=== PATIENT | female | born 1970 | race Caucasian/White ===

== ENCOUNTER 2018-08-13 13:05 | Outpatient (REF) | payer OTHER, SELFPAY ==
--- NOTE | 2018-08-13 14:00 | PAPFT_PTH ---
PATIENT: Vivien Quijano LOC: [facility] U#:[id number] AGE/SX: 47/F ROOM: RE08/13/[address]: SOFIE Chairez : 1970 BED: DIS: 08/13/2018 SPEC #: [id number] RECD: 08/14/18 13:20 STATUS: RAZ DUNN #: [id number] SHRUTHI: 08/13/18 14:[address]: Erlinda Burns [facility] Cytology RECD BY: Madisyn Cisneros Tissues: 1 - CX/ENDOCX FOR PAP SMEARS Procedures: PAP THIN PREP/UVM Screening HPV DNA PROBE Comments: [id number]
== END 2018-08-13 13:25 ==
LOC: LBN 13:05
PROVIDERS: PCP Nurse Practitioner Family; Visit Provider Nurse Practitioner Family
DX: Z12.4 Encounter for screening for malignant neoplasm of cervix (principal); Z11.51 Encounter for screening for human papillomavirus (HPV)
CPT/HCPCS: 88142; 87624

== ENCOUNTER 2018-08-21 00:41 | Outpatient (CLI) | payer OTHER, SELFPAY ==
--- NOTE | 2018-08-21 08:00 | DI.MAMMO_ITS ---
SYMPTOM/DIAGNOSIS: SCREENING, Z12.31 MAMMOGRAMS: Mammograms were interpreted according to the usual protocol including computer analysis with CAD system, tomosynthesis and C view imaging. The breast tissue is heterogeneously radiodense which lowers the sensitivity of the study. There is no dominant mass. There are no suspicious calcifications and there has been no significant interval change when compared with prior examinations. SUMMARY: No evidence of malignancy, category 1. Yearly screening mammography is recommended. Breast density, category C. SA ASSESSMENT OF FINDINGS: Negative. Category 1. Patient will receive a letter notifying them of these results. Bi-RADS category C. The breasts are heterogeneously dense, which may obscure small masses.
[2018-08-21 09:41] LABS: Hemoglobin A1C 6.1 % (4.5-6.2)
[2018-08-21 09:55] LABS: ALT 39 U/L (12-78); AST 17 U/L (15-37); Albumin 3.5 g/dL (3.4-5.0); Alkaline Phosphatase 85 U/L (46-116); Anion Gap 6.6 mmol/L (3-11); BUN 13 mg/dL (7-18); Bilirubin, Total 0.5 mg/dL (0.2-1.0); CO2 30.4 mmol/L (21.0-32.0); Calcium 9.1 mg/dL (8.5-10.1); Chloride 102 mmol/L (98-107); Cholesterol 227 mg/dL (50-200); Glucose 116 mg/dL (70-100); HDL Cholesterol 48 mg/dL (40-60); LDL CHOLESTEROL 159 mg/dL (<100); Potassium 3.7 mmol/L (3.5-5.1); Sodium 139 mmol/L (136-145); TSH 3.12 uIU/mL (0.358-3.74); Total Protein 6.8 g/dL (6.4-8.2); Triglyceride 115 mg/dL (30-150)
[2018-08-21 10:14] LABS: FREE T4 0.93 ng/dL (0.76-1.46)
== END 2018-08-21 01:01 ==
PROVIDERS: PCP Nurse Practitioner Family; Visit Provider Nurse Practitioner Family
DX: Z12.31 Encounter for screening mammogram for malignant neoplasm of breast (principal); E78.5 Hyperlipidemia, unspecified; R73.03 Prediabetes
CPT/HCPCS: 36415; 77063; 77067; 80053; 80061; 83721; 83036; 84439; 84443

== ENCOUNTER 2019-10-13 01:06 | Outpatient (CLI) | payer OTHER, SELFPAY ==
--- NOTE | 2019-10-13 08:21 | DI.MAMMO_ITS ---
EXAM: MAMMO SCREENING CLINICAL HISTORY: screening,Z12.39 TECHNIQUE: Mammograms were interpreted according to the usual protocol including computer analysis w ith CAD system, tomosynthesis and C-view imaging. COMPARISON: 2013 through 2018 FINDINGS: The breasts are composed of scattered fibroglandular densities, Breast Density category B. No suspicious masses or suspicious microcalcifications are seen. No skin thickening or abnormal axillary lymph nodes are seen. There has been no significant change from prior exams. IMPRESSION: BI-RADS category 1, yearly screening mammography is recommended. Breast density category B, scattered fibroglandular densities.
== END 2019-10-13 01:26 ==
PROVIDERS: PCP Nurse Practitioner Family; Visit Provider Nurse Practitioner Family
DX: Z12.31 Encounter for screening mammogram for malignant neoplasm of breast (principal)
CPT/HCPCS: 77063; 77067

== ENCOUNTER 2020-04-25 02:24 | Outpatient (CLI) | payer OTHER, SELFPAY ==
[2020-04-26 23:25] LABS: COVID-19 RT-PCR Result NEGATIVE (Negative)
== END 2020-04-25 02:44 ==
PROVIDERS: PCP Nurse Practitioner Family; Visit Provider Nurse Practitioner Family
DX: Z20.828 Contact with and (suspected) exposure to other viral communicable diseases (principal); Z11.59 Encounter for screening for other viral diseases
CPT/HCPCS: U0003

== ENCOUNTER 2020-05-23 10:32 | Emergency (ER) | payer OTHER, SELFPAY ==
[2020-05-23] VITALS (47 sets, daily range): BP systolic 124–161; BP diastolic 71–92; PULSE 69–104; RESP 13–27; TEMP 36.7–37.4; O2SAT 97–100
--- NOTE | 2020-05-23 10:30 | RT.EKG_ITS ---
APPROVED REPORT Exam: Resting ECG Patient Location: E HR:93 bpm ECG Measurements Heart Rate 93 AXIS [place] 151 P 61 QRSd 81 QRS 25 QT 338 T 16 QTc 420 Conclusion Sinus rhythm...normal P axis, V-rate 60- 99 Probable left atrial enlargement...P >50mS, <-0.10mV V1
--- NOTE | 2020-05-23 10:33 | ED.GENADUL_ITS ---
Discharge Plan Disposition Patient Disposition: HOME Condition: Stable Discharge Details Clinical Impression: Chronic shortness of breath, Right-sided chest wall pain, Pain in right shoulder Primary Care Provider: Erlinda Burns ED Provider: Kae Devine Home Meds and New Rx's Prescriptions: Continued levonorgestrel-ethinyl estrad 0.15-0.03 mg tablet 1 tab PO DAILY Qty: 84 RF: 4 Discharge Instructions Instructions: Dyspnea (ED), Shoulder Pain (ED), Chest Wall Pain (ED) Additional Instructions: Alternate ice and heat to the affected area(s) several times daily for 20 minutes at a time. Alternate tylenol and motrin as needed and directed for pain. Call your primary care doctor's office today or tomorrow to schedule follow-up appointment for reevaluation and for consideration for outpatient stress test if symptoms persist or worsen. Return immediately to the emergency department if you develop any worsening or new concerning symptoms. Discharge Data Discharge Date/Time-TO BE ENTERED AT DEPARTURE: 05/23/20 15:42 Discharge Physician: Kae Devine Medical Decision Making 1050 -- 49-year-old female with a history of obesity, anxiety, depression, hyperlipidemia and prediabetes presents with right-sided chest and shoulder pain after shoveling a few days ago and chronic intermittent shortness of breath with exertion for the past several months. Also complaining of an episode of tingling of her face and hands this morning at work. Patient states she felt anxious returning to work today after a week off. EKG on arrival notes a rate of 93, sinus with no acute ST-T wave ischemic findings. Patient appears mildly anxious. Her blood pressure and heart rate are moderately elevated. Her oxygen saturation is 100% on room air. Differential diagnosis includes anxiety, muscle strain, PE, ACS. History and presentation not consistent with dissection. As her pain is reproducible, suspect most likely musculoskeletal with an anxiety component due to the perioral and hand paresthesias. Considering her comorbidities and control, will obtain a cardiac work-up and CT chest and give fluids, Toradol and Ativan and reassess. Labs and imaging reviewed and unremarkable. CT chest noted: 1. Less than optimal study due to respiratory motion artifact + somewhat less than optimal injection. No evidence of obvious acute pulmonary emboli. No evidence of pulmonary infarction.No pleural effusions. 2. No evidence of right heart failure. No shift of the interventricular septum. 3. Hepatic steatosis is noted. Patient reassessed and she feels better. She appears more comfortable and relaxed. Her vitals are within normal limits. As her shortness of breath has been chronic and her chest pain is reproducible, history and presentation less likely consistent with PE or ACS. Considering patient's risk factors will also obtain a repeat EKG and troponin. Repeat EKG and troponin unremarkable. Patient reassessed and she feels comfortable going home. Advised to alternate ice and heat, Tylenol and Motrin for her chest wall and shoulder pain. She is advised to follow-up with her primary care doctor for further evaluation if symptoms persist for consideration of an outpatient stress test. Usual and customary return precautions given prior to discharge. Medical Records Medical records reviewed: Yes I reviewed the patient's medical records. Imaging Data Radiologic Study: Radiologist's impression: CT CHEST PE CTA CLINICAL HISTORY: sob, chest tightness, r/o PE. TECHNIQUE: Imaging Protocol: CT angiography of the chest was performed using pulmonary embolus protocol. Multi planar reconstructions were performed. CONTRAST MATERIAL: Intravenous: Omnipaque 350 Contrast volume: 100 cc COMPARISON: No exams were available for comparison FINDINGS: CHEST: Study is somewhat less than optimal due to respiratory motion artifact +slightly less than optimal injection PULMONARY ARTERIES: There are no obvious intraluminal filling defects to suggest acute pulmonary emboli. LUNGS: There are no infiltrates nor evidence of pulmonary infarction.. No nodules evident in either lung field. There are no pleural effusions. MEDIASTINUM: There is no hilar nor mediastinal adenopathy. Visualized thyroid unremarkable. CARDIAC: Heart size is normal. There is no pericardial effusion.Caliber of the thoracic aorta is within normal limits. There is no evidence of shift of the interventricular septum. PARTIALLY VISUALIZED UPPERMOST ABDOMEN: Hepatic steatosis incidentally noted. OSSEOUS: No significant osseous lesions.. IMPRESSION: 1. Less than optimal study due to respiratory motion artifact + somewhat less than optimal injection. No evidence of obvious acute pulmonary emboli. No evidence of pulmonary infarction.No pleural effusions. 2. No evidence of right heart failure. No shift of the interventricular septum. 3. Hepatic steatosis is noted. Lab Data Lab results reviewed: Yes I reviewed the patient's lab results. Labs: Laboratory Tests Range/Units 05/23/20 05/23/20 05/23/20 11:00 11:00 11:00 WBC (4.4-10.8) 10^3/uL 6.16 RBC (3.93-5.22) 10^6/uL 4.65 Hgb (11.2-15.7) g/dL 12.9 Hct (36.0-46.0) % 40.4 MCV (80-95) fL 86.9 MCH (27.0-33.0) pg 27.7 MCHC (32.0-36.0) % 31.9 L RDW (11.7-14.6) % 14.1 Plt Count (130-400) 10^3/uL MPV (8.0-11.0) fL 11.0 Immature Gran % 0.3 Neutrophils % 62.5 Lymphocytes % 31.2 Monocytes % 4.7 Eosinophils % 0.8 Basophils % 0.5 Nucleated RBC % % 0 Absolute Neutrophils (1.2-6.7) 10^3/uL 3.85 Absolute Lymphocytes (1.2-3.4) 10^3/uL 1.92 Absolute Monocytes (0.1-0.8) 10^3/uL 0.29 Absolute Eosinophils (0.0-0.7) 10^3/uL 0.05 Absolute Basophils (0.0-0.2) 10^3/uL 0.03 RBC Morphology Normal PT (9.3-11.0) sec 11.0 INR (0.9-1.1) 1.1 APTT (21.0-27.5) sec 19.5 L Sodium (136-145) mmol/L 135 L Potassium (3.5-5.1) mmol/L 4.3 Chloride (98-107) mmol/L 102 Carbon Dioxide (21.0-32.0) mmol/L 22.2 Anion Gap (3-11) mmol/L 10.8 BUN (7-18) mg/dL 12 Creatinine (0.55-1.02) mg/dL 1.04 H Estimated GFR/1.73 m2 (mL/min/1.73m2) 56.56 Glucose (74-106) mg/dL 171 H Calcium (8.5-10.1) mg/dL 9.2 Magnesium (1.8-2.4) mg/dL 2.0 Total Bilirubin (0.2-1.0) mg/dL 0.4 AST (15-37) U/L 71 H ALT (14-59) U/L 101 H Alkaline Phosphatase (46-116) U/L 80 Troponin I (<0.06) ng/mL < 0.05 Total Protein (6.4-8.2) g/dL 7.5 Albumin (3.4-5.0) g/dL 3.3 L Range/Units 05/23/20 14:00 WBC (4.4-10.8) 10^3/uL RBC (3.93-5.22) 10^6/uL Hgb (11.2-15.7) g/dL Hct (36.0-46.0) % MCV (80-95) fL MCH (27.0-33.0) pg MCHC (32.0-36.0) % RDW (11.7-14.6) % Plt Count (130-400) 10^3/uL MPV (8.0-11.0) fL Immature Gran % Neutrophils % Lymphocytes % Monocytes % Eosinophils % Basophils % Nucleated RBC % % Absolute Neutrophils (1.2-6.7) 10^3/uL Absolute Lymphocytes (1.2-3.4) 10^3/uL Absolute Monocytes (0.1-0.8) 10^3/uL Absolute Eosinophils (0.0-0.7) 10^3/uL Absolute Basophils (0.0-0.2) 10^3/uL RBC Morphology PT (9.3-11.0) sec INR (0.9-1.1) APTT (21.0-27.5) sec Sodium (136-145) mmol/L Potassium (3.5-5.1) mmol/L Chloride (98-107) mmol/L Carbon Dioxide (21.0-32.0) mmol/L Anion Gap (3-11) mmol/L BUN (7-18) mg/dL Creatinine (0.55-1.02) mg/dL Estimated GFR/1.73 m2 (mL/min/1.73m2) Glucose (74-106) mg/dL Calcium (8.5-10.1) mg/dL Magnesium (1.8-2.4) mg/dL Total Bilirubin (0.2-1.0) mg/dL AST (15-37) U/L ALT (14-59) U/L Alkaline Phosphatase (46-116) U/L Troponin I (<0.06) ng/mL < 0.05 Total Protein (6.4-8.2) g/dL Albumin (3.4-5.0) g/dL ECG Data Attestation: I personally reviewed and interpreted this ECG (s) as follows: Interpretation: #1 -- Rate of 93, sinus, no acute ST elevation or depression. [place] 151. QRS 81. QTc 420. #2 -- Rate of 75, sinus, no acute ST elevation or depression. [place] 146. QRS 90. QTc 427. HPI General Mode of arrival: ambulatory . Date/Time Provider Initiated Documentation: 05/23/20 10:32 . Limitations to Documentation: no limitations . Information obtained by: patient . HPI Narrative: Patient is a 49-year-old female with a history of obesity, anxiety, depression, hyperlipidemia, prediabetes presents with several months of intermittent shortness of breath with exertion and right-sided chest tightness and right shoulder pain for the past 3 days after shoveling at home. Patient states she has a week off for the holidays and returned to work today and was sitting in her office when I coworker told her that she looked pale. She states shortly after that she noted tingling in her face and both of her hands. She states she called her primary care doctor and they advised her to come here for further evaluation. Patient states that since the pandemic started in July she has been more sedentary and has been sitting at home and has approximately gained 15 pounds. She states over the last several months she has become more short of breath with exertion. She states 3 days ago she was shoveling snow at home and a few hours later developed right-sided chest and right shoulder pain. She states she mainly came in today when her coworker told her that she appeared pale with tingling in her face and hands. She does admit to a history of anxiety and states she felt anxious this morning after speaking with her coworker. She denies any fever, cough, nausea, vomiting, dizziness. Related Data Home Medications Medication Instructions Recorded Confirmed levonorgestrel 0.15 mg-ethinyl 1 tab PO DAILY #84 tab 08/17/19 05/23/20 estradiol 0.03 mg tablet Previous Rx's Medication Instructions Recorded levonorgestrel 0.15 mg-ethinyl 1 tab PO DAILY #84 tab 08/17/19 estradiol 0.03 mg tablet Allergies Allergy/AdvReac Type Severity Reaction Status Date / Time No Known Allergies Allergy Unverified 05/23/20 10:45 Review of Systems All systems reviewed & are unremarkable except as noted in HPI and below Constitutional Constitutional: Reports as per HPI, Denies chills and Denies fever(s) Eyes Eyes: Denies blurry vision ENT Ears, Nose, Mouth, and Throat: Denies dizziness, Denies sore throat and Denies throat swelling Cardiovascular Cardiovascular: Denies chest pain and Denies dyspnea Respiratory Respiratory: Denies cough and Denies dyspnea Gastrointestinal Gastrointestinal: Denies abdominal pain, Denies diarrhea and Denies vomiting Genitourinary Genitourinary: Denies hematuria and Denies dysuria Musculoskeletal Musculoskeletal: Denies back pain and Denies numbness Integumentary/Breasts Skin/Breast: Denies lesions and Denies rash Neurologic Neurologic: Denies dizziness, Denies localized weakness and Denies numbness Allergic/Immunologic Allergic/Immunologic: Denies throat swelling [facility] Medical History (Updated 05/23/20 @ 14:58 by Kae Devine DO) Depressive disorder Generalized anxiety disorder Hyperlipidemia Left breast mass (~2003) Negative biopsy--fibrocystic changes Obesity Prediabetes Surgical History History of section S/P LASIK surgery of both eyes S/P left breast biopsy (02/03/04) Showed fibrocystic changes, no malignancy Family History Mother Essential hypertension Anxiety Hyperlipidemia Type 2 diabetes mellitus Father Hyperlipidemia Sister Migraine Anxiety Sister No problems noted. Sister No problems noted. Sister No problems noted. Sister No problems noted. Son ADHD Son No problems noted. Maternal Grandfather Heart disease Maternal Grandmother Colon cancer Liver cancer Paternal Grandfather Type 2 diabetes mellitus Heart disease Stroke Paternal Grandmother Esophageal cancer Maternal Aunt Breast cancer In her early 30s Social History Smoking/Tobacco Use Status: Never Smoking risk assessment performed?: Yes Alcohol Intake: current Alcohol Intake frequency: a few times a month Alcohol type: beer and wine Drug use: Never Substance use type: does not use Caregiver/Support person: No Household members: children Housing: house Communication Needs: None Do you need help understanding health information?: Never Pets and animals: No Sexually active: No Do you think of yourself as: straight/heterosexual Current gender identity: female What is your relationship status?: How often do you talk on the phone with friends or family?: three or more times per week How often do you attend christianity or druze services?: decline to answer Do you belong to any clubs or organized social groups?: yes Panel score (0-1 are the most socially isolated patients): 2 What type of physical activity do you participate in: walking Duration: > 90 minutes/day Frequency: 3-4 times per week Margaret/Mandaeism: Mandaeism Special margaret needs: No Seatbelt use: always Helmet use: Yes Drive intox or ride w/intox motor coach bus driver: No Do you feel safe at home: Yes Do you feel safe in your relationship?: Yes History History 2 Para 2 Hx # Term Pregnancies Multiple births Hx # Pregnancies Ectopic pregnancies AB induced Hx Number of Living Children 2 AB spontaneous Exam Const General: cooperative, healthy appearing and anxious Orientation: alert, awake and oriented x3 HENMT Head: normal to inspection Face and sinus: normal facial exam Eyes General: appearance normal, both eyes and all related structures Pupils: PERRL EOM: EOM intact bilaterally Neck Neck: normal visual inspection and No submandibular swelling Lymphatic: no lymphadenopathy noted Chest Chest: normal inspection of the chest and no tenderness Resp Effort & Inspection: normal respiratory effort and able to speak in complete sentences Auscultation: clear to auscultation bilaterally Cardio Rate: regular rate Rhythm: regular rhythm GI Inspection: normal to inspection and obesity Palpation: soft, not firm, not rigid and nontender Auscultation: normal bowel sounds Back/Spine/Pelvis Thoracic/Lumbar Spine: thoracic and lumbar spine normal to inspection Pelvis: no pain with anterior-posterior compression Skin General skin exam: no rashes or lesions noted Neuro General: patient alert, patient awake and patient oriented x3 Cognition: normal cognition Speech: speech normal Motor: muscle tone normal throughout Sensory Exam: no sensory deficits noted Extrem General: normal to inspection, full ROM, capillary refill normal, no calf tenderness bilaterally and no edema Other: Some reproducible right upper chest and shoulder pain with range of motion of her right upper extremity. No tenderness palpation of her right shoulder. No deformities noted. No evidence of trauma. Psych Appearance: grossly normal Mental Status: mental status grossly normal Speech and Movement: speech and movement normal Affect: normal affect
--- NOTE | 2020-05-23 11:00 | DI.CT_ITS ---
EXAM: CT CHEST PE CTA CLINICAL HISTORY: sob, chest tightness, r/o PE. TECHNIQUE: Imaging Protocol: CT angiography of the chest was performed using pulmonary embolus chapo col. Multi planar reconstructions were performed. CONTRAST MATERIAL: Intravenous: Omnipaque 350 Contrast volume: 100 cc COMPARISON: No exams were available for comparison FINDINGS: CHEST: Study is somewhat less than optimal due to respiratory motion artifact +slightly less than opt imal injection PULMONARY ARTERIES: There are no obvious intraluminal filling defects to suggest acute pulmonary embo li. LUNGS: There are no infiltrates nor evidence of pulmonary infarction.. No nodules evident in either l chavez field. There are no pleural effusions. MEDIASTINUM: There is no hilar nor mediastinal adenopathy. Visualized thyroid unremarkable. CARDIAC: Heart size is normal. There is no pericardial effusion.Caliber of the thoracic aorta is wit hin normal limits. There is no evidence of shift of the interventricular septum. PARTIALLY VISUALIZED UPPERMOST ABDOMEN: Hepatic steatosis incidentally noted. OSSEOUS: No significant osseous lesions.. IMPRESSION: 1. Less than optimal study due to respiratory motion artifact + somewhat less than optimal injection . No evidence of obvious acute pulmonary emboli. No evidence of pulmonary infarction.No pleural eff usions. 2. No evidence of right heart failure. No shift of the interventricular septum. 3. Hepatic steatosis is noted. Report called to the ER. RADIATION DOSE DELIVERED: LINK-TO-SR Total DLP DATA REPOSITORY: All CT scans at this facility are submitted to the National Radiology Data Registry (NRDR) Dose Index Registry (DIR) with the [employer] (ACR). RADIATION OPTIMIZATION: All CT scans at this facility use at least one of these dose optimization te chniques: automated exposure control; mA and/or kV adjustment per patient size (includes targeted exa ms where dose is matched to clinical indication); or iterative reconstruction.
[2020-05-23] MEDS: Normal Saline Flush 10 ML SYR IVP (11:05)
[2020-05-23 11:12] LABS: Abs Immature Grans 0.02 10^3/uL (0.0-0.06); Absolute Basophil Count 0.03 10^3/uL (0.0-0.2); Absolute Eosinophil Count 0.05 10^3/uL (0.0-0.7); Absolute Lymphocyte Count 1.92 10^3/uL (1.2-3.4); Absolute Monocyte Count 0.29 10^3/uL (0.1-0.8); Absolute Neutrophil Count 3.85 10^3/uL (1.2-6.7); Basophils % 0.5; Eosinophils % 0.8; HCT 40.4 % (36.0-46.0); HGB 12.9 g/dL (11.2-15.7); Immature Grans % 0.3; Lymphocytes % 31.2; MCH 27.7 pg (27.0-33.0); MCHC 31.9 % (32.0-36.0); MCV 86.9 fL (80-95); Monocytes % 4.7; Neutrophils % 62.5; Nucleated RBC 0 %; RBC 4.65 10^6/uL (3.93-5.22); RDW 14.1 % (11.7-14.6); RDW-SD 44.7 fL; WBC 6.16 10^3/uL (4.4-10.8)
[2020-05-23 11:25] LABS: INR 1.1 (0.9-1.1); PTT Activated 19.5 sec (21.0-27.5)
[2020-05-23 11:26] LABS: Diff Comment Diff Reviewed; RBC Morphology Normal
[2020-05-23] MEDS: Normal Saline 1,000 ML 1000 ML IV (11:31)
[2020-05-23 11:32] LABS: ALT 101 U/L (14-59); AST 71 U/L (15-37); Albumin 3.3 g/dL (3.4-5.0); Alkaline Phosphatase 80 U/L (46-116); Anion Gap 10.8 mmol/L (3-11); BUN 12 mg/dL (7-18); Bilirubin, Total 0.4 mg/dL (0.2-1.0); CO2 22.2 mmol/L (21.0-32.0); CREATININE 1.04 mg/dL (0.55-1.02); Calcium 9.2 mg/dL (8.5-10.1); Chloride 102 mmol/L (98-107); Estimated GFR 56.56 (mL/min/1.73m2); Glucose 171 mg/dL (74-106); Potassium 4.3 mmol/L (3.5-5.1); Sodium 135 mmol/L (136-145); Total Protein 7.5 g/dL (6.4-8.2); Troponin I < 0.05 ng/mL (<0.06)
[2020-05-23] MEDS: LORazepam 2 MG/ML VIAL 0.5 MG IVP (11:33)
[2020-05-23] MEDS: Ketorolac 30 MG/ML VIAL IVP (11:35)
[2020-05-23] MEDS: Omnipaque 350 MG/ML 100 ML BTL IV (12:34)
--- NOTE | 2020-05-23 13:15 | RT.EKG_ITS ---
APPROVED REPORT Exam: Resting ECG Patient Location: E HR:75 bpm ECG Measurements Heart Rate 75 AXIS [place] 146 P 36 QRSd 90 QRS 24 QT 382 T 9 QTc 427 Conclusion Sinus rhythm...normal P axis, V-rate 60- 99 I have reviewed and interpreted ECG and agree with software generated interpretation.
[2020-05-23 14:32] LABS: Troponin I < 0.05 ng/mL (<0.06)
== END 2020-05-23 15:42 | disposition home or self-care (01) ==
PROVIDERS: Emergency Provider Physician Assistant; PCP Nurse Practitioner Family
DX: R07.81 Pleurodynia (principal); R06.02 Shortness of breath; M25.511 Pain in right shoulder; Y93.H1 Activity, digging, shoveling and raking
CPT/HCPCS: 36415; 71275; 80053; 81025; 93005; 96361; 96374; 96375; 99285; 83735; 84484; 85025; 85610; 85730; 93010; J1885; J2060; J3490

== ENCOUNTER 2020-06-06 02:25 | Outpatient (CLI) | payer OTHER, SELFPAY ==
[2020-06-06 13:14] LABS: Hemoglobin A1C 7.6 % (<5.7)
[2020-06-06 13:15] LABS: Anion Gap 9.9 mmol/L (3-11); BUN 12 mg/dL (7-18); CO2 22.1 mmol/L (21.0-32.0); CREATININE 0.94 mg/dL (0.55-1.02); Calcium 8.7 mg/dL (8.5-10.1); Calculated LDL 172 mg/dL (<100); Chloride 105 mmol/L (98-107); Cholesterol 249 mg/dL (<200); Glucose 152 mg/dL (74-106); HDL Cholesterol 43 mg/dL (40-60); Potassium 4.2 mmol/L (3.5-5.1); Sodium 137 mmol/L (136-145); Triglyceride 170 mg/dL (<150)
== END 2020-06-06 02:45 ==
PROVIDERS: PCP Nurse Practitioner Family; Visit Provider Nurse Practitioner Family
DX: E78.5 Hyperlipidemia, unspecified (principal); R73.03 Prediabetes
CPT/HCPCS: 36415; 80048; 80061; 83036

== ENCOUNTER 2020-06-17 00:51 | Outpatient (CLI) | payer OTHER, SELFPAY ==
--- NOTE | 2020-06-17 13:00 | NS.NUTBLAN_ITS ---
Pat was referred for medical nutrition therapy for newly dx DM2. Most recent A1c: 7.6%. Just started on metformin 500 mg BID and 10 mg rosustatin. wt: 242 Ht: 62 inches BMI 44. Pat reports gaining 20 lbs in last year. Has tried losing weight in past and was successful losing 40 lbs following keto diet. Unable to maintain wieght loss, now at highest weight ever. Here today to learn how to use glucometer and which diet to follow to manage Dm and to lose weight. Goal wt: 190 lbs. Session today focused on how to test blood sugars and to test sugar TID, fasting and after 2 meals. Blood sugar goals provided. Also reviewed principles of low glycemic diet with emphasis on lean protien and complex carbs. Encouraged 30 min exercise daily, Pat plans to walk on her lunch break. Plan: follow [id number] kcal meal plan with 80-100 g CHO, 60-80 g protein and 50-60 g fat, walk 7 miles weekly. Follow up meeting scheduled for 07/15/20 at 2 pm
== END 2020-06-17 01:11 ==
PROVIDERS: PCP Nurse Practitioner Family; Visit Provider Dietitian, Registered
DX: E11.9 Type 2 diabetes mellitus without complications (principal); Z71.3 Dietary counseling and surveillance
CPT/HCPCS: 97802

== ENCOUNTER 2020-07-15 00:27 | Outpatient (CLI) | payer OTHER, SELFPAY ==
--- NOTE | 2020-07-15 14:00 | NS.NUTBLAN_ITS ---
Vivien returns for Medical Nutrition Therapy for education on diabetes self management. Blood sugar logs indicate most fasting levels 80-120 mg/dl, post prandials typically < 140 mg/dl. Blood sugars adequately controlled with metformin 500 mg BID with diet and life style changes. Diet recall indicates that Pat has started to eat breakfast, packs a healthy lunch and eats mostly protein and vegetables at dinner. She allows herself 2 restaurant meals per week. Wt: 235.6 lbs, down 7.6 lbs in last 4 weeks. Session today focused on increased variety of meals and need for routine exercise to maintain weight loss of 5-10 lbs per week. Goal wt: <200 lbs. Overall, Vivien is doing a great job with reducing her carbohydrate intake and increasing fruits, vegetable and lean protein intake. In order for her weight loss to continue, she will need to exercise a minimim of 20 min daily or walk 7 miles per week. Follow up appt. 08/15/20 at 1 pm.
== END 2020-07-15 00:28 | disposition home or self-care (01) ==
LOC: DS 00:28
PROVIDERS: PCP Nurse Practitioner Family; Visit Provider Dietitian, Registered
DX: E11.9 Type 2 diabetes mellitus without complications (principal); Z79.84 Long term (current) use of oral hypoglycemic drugs; Z71.3 Dietary counseling and surveillance
CPT/HCPCS: 97803

== ENCOUNTER 2020-08-15 04:38 | Outpatient (CLI) | payer OTHER, SELFPAY ==
--- NOTE | 2020-08-15 13:00 | NS.NUTBLAN_ITS ---
Vivien returns for medical nutrition therapy for diabetes self management training and weight loss. Wt: 231 lbs, down 11 lbs in last 8 weeks. Food recall indicates well planned balanced meals- meal tracking using [employer] aysha and meeting daily goal of [id number] kcal, 80-100g carb, 60-70 g protein, 50-55 g fat. She reports walking daily 1 mile at work and has purchased an exercise bike and treadmill for raining/snowy days. Session today focused on increasing variety in meal plan, planning for special occasions and blood sugar management. Encouraged continued SMBG TID and follow up with PCP with BS logs. Overall, Vivien is doing a great job incorporating exercise and decreased carb intake for optimal weight loss and glycemic control. Goal: 4-10 lbs weight loss per month. Goal Wt: <200 lbs. Follow up visit planned for 09/30/20 at 11 am.
== END 2020-08-15 04:39 | disposition home or self-care (01) ==
LOC: DS 04:39
PROVIDERS: PCP Nurse Practitioner Family; Visit Provider Dietitian, Registered
DX: Z11.3 Encounter for screening for infections with a predominantly sexual mode of transmission (principal); Z71.3 Dietary counseling and surveillance
CPT/HCPCS: 97803

== ENCOUNTER 2020-08-24 15:45 | Outpatient (REF) | payer OTHER, SELFPAY ==
[2020-08-25 03:38] LABS: COVID-19 RT-PCR UVMMC Result Positive (Negative)
== END 2020-08-24 15:46 | disposition home or self-care (01) ==
LOC: LBN 15:45
PROVIDERS: PCP Nurse Practitioner Family; Visit Provider Family Medicine
DX: Z20.822 Contact with and (suspected) exposure to COVID-19 (principal)
CPT/HCPCS: U0003

== ENCOUNTER 2020-08-26 10:34 | Outpatient (CLI) | payer OTHER, SELFPAY ==
[2020-08-26 12:38] VITALS: BP 117/83; PULSE 86; RESP 16; TEMP 37.4; O2SAT 96
[2020-08-26] MEDS: Normal Saline 500 ML 30 ML IV (13:44)
[2020-08-26] MEDS: Normal Saline Flush 10 ML SYR IVP (13:45)
[2020-08-26 13:51] VITALS: BP 118/81; PULSE 80; RESP 20; TEMP 37.1; O2SAT 97
[2020-08-26 14:28] VITALS: BP 118/81; PULSE 82; RESP 20; TEMP 37.2; O2SAT 97
[2020-08-26 15:00] VITALS: BP 112/76; PULSE 92; RESP 16; TEMP 37; O2SAT 97
[2020-08-26 15:28] VITALS: BP 109/75; PULSE 67; RESP 18; TEMP 36.9; O2SAT 97
== END 2020-08-26 10:35 | disposition home or self-care (01) ==
LOC: INF 10:35
PROVIDERS: PCP Nurse Practitioner Family; Visit Provider Family Medicine
DX: U07.1 COVID-19 (principal)
CPT/HCPCS: 96365

== ENCOUNTER 2020-09-06 02:23 | Outpatient (CLI) | payer OTHER, SELFPAY ==
[2020-09-07 13:31] LABS: COVID-19 RT-PCR UVMMC Result Presumptive Positive (Negative)
== END 2020-09-06 02:24 | disposition home or self-care (01) ==
LOC: LBO 02:23
PROVIDERS: PCP Nurse Practitioner Family; Visit Provider Nurse Practitioner Family
DX: U07.1 COVID-19 (principal)
CPT/HCPCS: U0003

== ENCOUNTER 2020-09-15 02:01 | Outpatient (CLI) | payer OTHER, SELFPAY ==
[2020-09-15 12:57] LABS: Hemoglobin A1C 6.5 % (<5.7)
[2020-09-15 13:04] LABS: Anion Gap 10.9 mmol/L (3-11); BUN 11 mg/dL (7-18); CO2 23.1 mmol/L (21.0-32.0); Calcium 8.8 mg/dL (8.5-10.1); Calculated LDL 114 mg/dL (<100); Chloride 107 mmol/L (98-107); Cholesterol 186 mg/dL (<200); Estimated GFR 59.18 (mL/min/1.73m2); Glucose 137 mg/dL (74-106); HDL Cholesterol 44 mg/dL (40-60); Potassium 3.9 mmol/L (3.5-5.1); Sodium 141 mmol/L (136-145); TSH (W/Ref FT4) 2.58 uIU/mL (0.36-3.74); Triglyceride 144 mg/dL (<150)
== END 2020-09-15 02:02 | disposition home or self-care (01) ==
LOC: LOS 02:01
PROVIDERS: PCP Nurse Practitioner Family; Visit Provider Nurse Practitioner Family
DX: E78.5 Hyperlipidemia, unspecified (principal); E11.9 Type 2 diabetes mellitus without complications
CPT/HCPCS: 36415; 80048; 80061; 83036; 84443

== ENCOUNTER 2020-09-16 09:42 | Outpatient (REF) | payer OTHER, SELFPAY ==
[2020-09-16 14:18] LABS: COMMENT (LAB VIEW ONLY) 222.33 mg/dL; Microalb ug/mg Crea 5.1 ug/mg Cr
== END 2020-09-16 09:43 | disposition home or self-care (01) ==
LOC: LBN 09:42
PROVIDERS: PCP Nurse Practitioner Family; Visit Provider Nurse Practitioner Family
DX: E11.9 Type 2 diabetes mellitus without complications (principal)
CPT/HCPCS: 82043; 82570

== ENCOUNTER 2020-09-30 01:09 | Outpatient (CLI) | payer OTHER, SELFPAY ==
--- NOTE | 2020-09-30 11:00 | NS.NUTBLAN_ITS ---
Vivien returns for medical nutrition therapy for weight loss, diabetes management. Most recent A1C: 6.5% reduction in A1C and lipids noted. Total weight loss 13 lbs in last 6 months (5% weight loss). Weight loss has decreased in last month due to covid infection. Session today reviewed meal plans and provided additional meal option. Encouraged continued following [id number] kcal meal plan with 90-100 g carbs, 60- 70 g protein along with 1 mile walk per day. Goal: 4-5 lbs weight loss per month Plan: follow up visit scheduled 12/16/20 1100 am
== END 2020-09-30 01:10 | disposition home or self-care (01) ==
LOC: DS 01:09
PROVIDERS: PCP Nurse Practitioner Family; Visit Provider Dietitian, Registered
DX: E11.9 Type 2 diabetes mellitus without complications (principal); E66.3 Overweight; Z71.3 Dietary counseling and surveillance
CPT/HCPCS: 97803

== ENCOUNTER 2020-10-14 03:09 | Outpatient (CLI) | payer OTHER, SELFPAY ==
--- NOTE | 2020-10-14 08:15 | DI.MAMMO_ITS ---
Exam(s) MAMMO SCREENING EXAM: MAMMO SCREENING CLINICAL HISTORY: screening,Z12.39 TECHNIQUE: Mammograms were interpreted according to the usual protocol including computer analysis w [employer] CAD system, tomosynthesis and C-view imaging. COMPARISON: FINDINGS: The breasts are heterogeneously dense. No dominant mass or clumped microcalcification is identified in either breast. The current examination is compared with previous examinations including September 2019 and there has been no gross interval change in appearance in comparison with the prior studies. IMPRESSION: No specific evidence of malignancy at this time. Routine screening examinations are suggested at yea rly intervals due to the family history of breast carcinoma. BI-RADS Category 1 - Negative Breast Density - Category C - Heterogeneously dense
== END 2020-10-14 03:29 ==
PROVIDERS: PCP Nurse Practitioner Family; Visit Provider Nurse Practitioner Family
DX: Z12.31 Encounter for screening mammogram for malignant neoplasm of breast (principal); Z80.3 Family history of malignant neoplasm of breast
CPT/HCPCS: 77063; 77067

== ENCOUNTER 2020-12-12 01:59 | Outpatient (CLI) | payer OTHER, SELFPAY ==
[2020-12-12 13:14] LABS: Hemoglobin A1C 6.8 % (<5.7)
[2020-12-12 13:41] LABS: Anion Gap 11.7 mmol/L (3-11); BUN 10 mg/dL (7-18); CO2 23.3 mmol/L (21.0-32.0); Calcium 9.5 mg/dL (8.5-10.1); Calculated LDL 146 mg/dL (<100); Chloride 104 mmol/L (98-107); Cholesterol 218 mg/dL (<200); Estimated GFR 58.93 (mL/min/1.73m2); Glucose 110 mg/dL (74-106); HDL Cholesterol 43 mg/dL (40-60); Potassium 4.3 mmol/L (3.5-5.1); Sodium 139 mmol/L (136-145); Triglyceride 149 mg/dL (<150)
== END 2020-12-12 02:00 | disposition home or self-care (01) ==
LOC: LOS 01:59
PROVIDERS: PCP Nurse Practitioner Family; Visit Provider Nurse Practitioner Family
DX: E11.9 Type 2 diabetes mellitus without complications (principal)
CPT/HCPCS: 36415; 80048; 80061; 83036

== ENCOUNTER 2020-12-16 00:18 | Outpatient (CLI) | payer OTHER, SELFPAY ==
--- NOTE | 2020-12-16 13:00 | NS.NUTBLAN_ITS ---
Vivien returns for Medical Nutrition Therapy for Diabetes Self Management and weight loss counseling. Wt: 221, 5'3. Goal wt: <185 lbs, BMI 39. Has maintained 10 lbs loss in last 90 days. Recent Labs: A1c: 6.8%, chol: 218, [id number], HDL 43. Meds include metformin 500 mg BID, pravastatin 20 mg qd. Vivien reports high stress this summer with 12 hour work days, poor sleep and decreased exercise. She is pleased that she has not regained weight but frustrated that her A1C increased from 6.5% to 6.8% in last 3 months and LDL has become elevated. Reports LDL to be drawn again to verify level. Reports MD will increase statin if LDL> 130 mg/dl. Session today focused on the risks of metabolic syndrome and her meal choices during long work days. Identified that Vivien has been eating cereal for dinner that has increased her blood sugar reading in AM. Identified ways she could increase exercise by walking more and encouraged her to talk to PCP re: sleep agent if needed to ensure 8 hours sleep per night. Encouraged Vivien to continue to log her meals and to keep carbohydrates < 100 g per day and to avoid high carb foods after 3 pm. Follow up visit 02/24/21 at 10 am
== END 2020-12-16 00:19 | disposition home or self-care (01) ==
LOC: DS 00:18
PROVIDERS: PCP Nurse Practitioner Family; Visit Provider Dietitian, Registered
DX: E11.9 Type 2 diabetes mellitus without complications (principal); Z79.84 Long term (current) use of oral hypoglycemic drugs; Z68.39 Body mass index [BMI] 39.0-39.9, adult; Z71.3 Dietary counseling and surveillance
CPT/HCPCS: 97803

== ENCOUNTER 2020-12-23 01:40 | Outpatient (CLI) | payer OTHER, SELFPAY ==
[2020-12-23 13:09] LABS: Calculated LDL 139 mg/dL (<100); Cholesterol 201 mg/dL (<200); HDL Cholesterol 43 mg/dL (40-60); Triglyceride 97 mg/dL (<150)
== END 2020-12-23 01:41 | disposition home or self-care (01) ==
LOC: LOS 01:40
PROVIDERS: PCP Nurse Practitioner Family; Visit Provider Nurse Practitioner Family
DX: E78.5 Hyperlipidemia, unspecified (principal)
CPT/HCPCS: 36415; 80061

== ENCOUNTER 2021-02-24 13:00 | Outpatient (CLI) | payer OTHER, SELFPAY ==
--- NOTE | 2021-02-24 13:00 | NS.NUTBLAN_ITS ---
Vivien returns for medical nutrition therapy for weight management. 5'3 215 lbs, BMI 38 has lost 27 lbs in last 9 months. PMH: DM2, HLD. Most recent labs (12/23/20) Chol: 201/ LDL: 139. Vivien continues to follow a lower carb diet with 80-100 g carbs per day with increased intakes of vegetables, lean protein and healthy fats. She reports no regular exercise as often works 50+ hours per week. Sleep has improved to 6-8 hours per night. Continues to take metformin and a statin and checks her fasting blood sugars daily. Typically fasting sugars < 130 mg/dl. Todays session included reviewing meal plans and providing alternative ideas for increased variety. Rise in lipids most likely not related to diet as tends to eat low levels of saturated fats. Diabetes well controlled with diet/lifestyle. Reviewed with Vivien how metabolic syndrome affects lipids and glucose levels adversely and encouraged her to continue with her weight loss until her BMI is < 35 (195 lbs). Praised Vivien on 27 lbs weight loss in last 9 months. In view that most people can't lose more than about 10% of their weight, reviewed with Vivien that bariatric surgery may be beneficial to her if further weight loss unsuccessful. She and I came up with plan that if she is unable to reach goal of 195 lbs by May 2021, that she will consider bariatric surgery. Next appt. scheduled 04/07/21 at 11 am with Hollie Girard RD for detailed information on pros/cons of bariatric surgery.
== END 2021-02-24 13:01 | disposition home or self-care (01) ==
LOC: DS 13:04
PROVIDERS: PCP Nurse Practitioner Family; Visit Provider Dietitian, Registered
DX: E66.8 Other obesity (principal); Z68.38 Body mass index [BMI] 38.0-38.9, adult; E11.9 Type 2 diabetes mellitus without complications; Z79.84 Long term (current) use of oral hypoglycemic drugs; E78.5 Hyperlipidemia, unspecified; Z71.3 Dietary counseling and surveillance
CPT/HCPCS: 97803

== ENCOUNTER 2021-03-13 01:03 | Outpatient (CLI) | payer OTHER, SELFPAY ==
[2021-03-13 12:50] LABS: Calculated LDL 132 mg/dL (<100); Cholesterol 203 mg/dL (<200); HDL Cholesterol 47 mg/dL (40-60); Triglyceride 122 mg/dL (<150)
[2021-03-13 12:56] LABS: Hemoglobin A1C 6.4 % (<5.7)
== END 2021-03-13 01:04 | disposition home or self-care (01) ==
LOC: LOS 01:03
PROVIDERS: PCP Nurse Practitioner Family; Visit Provider Nurse Practitioner Family
DX: E11.9 Type 2 diabetes mellitus without complications (principal)
CPT/HCPCS: 36415; 80061; 83036

== ENCOUNTER 2021-06-02 13:23 | Outpatient (CLI) | payer OTHER, SELFPAY ==
--- NOTE | 2021-06-02 09:00 | NS.NUTBLAN_ITS ---
Vivien returns for medical nutrition therapy for weight loss. Wt: 212 lbs. Has lost 30 lbs in last 12 months. BMI: 38. Vivien weighed 242 lbs last year and has decreased her BMI from 44 to 38. Goal wt: 190 lbs. She reports frustration for not being able to continue to lose weight and has hit a plateau for the last 8 weeks. Diet Recall: cheese, mcqueen, berries, green beans, sandwich, chicken, salad and vegetable. Exercise: none on regular basis. No changes in meal plan recommended at this time as she continues to follow 80- 100 g carbs daily and has good intakes of non starchy vegetables, protein and healthy fats. Reviewed cholesterol content in diet and it appears that she does not exceed 20 grams saturated fat daily. Unable to take a statin due to muscle pain and fatigue. Provided guidelines on how to limit sat fat intake to 10 grams or less daily. Suspect continued weight loss will improve lipids. At this time she will need a minimum of 30 minutes exercise 5 times per week. Vivien also enquired about trulicity for weight loss. Encouraged her to try it. Also, shared that some clients are having difficulty for insurance coverage. follow up scheduled for 07/14/21 at 9 am. Goal is 1 lbs per week.
== END 2021-06-02 13:24 | disposition home or self-care (01) ==
LOC: DS 13:26
PROVIDERS: PCP Nurse Practitioner Family; Visit Provider Dietitian, Registered
DX: Z71.3 Dietary counseling and surveillance (principal); E11.9 Type 2 diabetes mellitus without complications; Z68.38 Body mass index [BMI] 38.0-38.9, adult
CPT/HCPCS: 97803

== ENCOUNTER 2021-06-23 01:45 | Outpatient (CLI) | payer OTHER, SELFPAY ==
[2021-06-23 14:55] LABS: Hemoglobin A1C 6.6 % (<5.7)
[2021-06-23 15:19] LABS: Anion Gap 12.2 mmol/L (3-11); BUN 12 mg/dL (7-18); CO2 24.8 mmol/L (21.0-32.0); Calculated LDL 203 mg/dL (<100); Chloride 103 mmol/L (98-107); Cholesterol 276 mg/dL (<200); Estimated GFR 58.93 (mL/min/1.73m2); Glucose 109 mg/dL (74-106); HDL Cholesterol 48 mg/dL (40-60); Potassium 3.4 mmol/L (3.5-5.1); Sodium 140 mmol/L (136-145); Triglyceride 127 mg/dL (<150)
== END 2021-06-23 01:46 | disposition home or self-care (01) ==
LOC: LBO 01:45
PROVIDERS: PCP Nurse Practitioner Family; Visit Provider Nurse Practitioner Family
DX: E11.9 Type 2 diabetes mellitus without complications (principal)
CPT/HCPCS: 36415; 80048; 80061; 83036

== ENCOUNTER 2021-07-21 10:00 | Outpatient (CLI) | payer OTHER, SELFPAY ==
--- NOTE | 2021-07-21 09:00 | NS.NUTBLAN_ITS ---
Vivien returns for weight management counseling. Weight: 207 lbs, BMI: 39.5. Has lost 5 lbs in last 6 weeks. Starting taking Trucility 2.4 mg qd on 06/28/21. She report some nausea as side effect and lack of appetite. She has stopped her statin and metformin. She continues to check her blood sugars couple times per week. Fasting levels around 90 mg/dl, post prandials < 130 mg/dl. Meal Plan: mcqueen, cheese, berries, nuts, burrito, fruit, meat and side salad. No routine exercise Overall, Vivien is doing well with meal plan and continues to lose about 1 lbs per week which is idea. Encouraged daily exercise of 30 min to help build muscle. Reviewed meal plan and encouraged use of [employer] aysha to track macronutrients. Goal: [id number] kcal, 60-70 g protein, 45-55 g fat daily. Follow up scheduled for 09/22/21 at 9 am.
== END 2021-07-21 10:01 | disposition home or self-care (01) ==
LOC: DS 10:01
PROVIDERS: PCP Nurse Practitioner Family; Visit Provider Dietitian, Registered
DX: E66.8 Other obesity (principal); E11.9 Type 2 diabetes mellitus without complications; Z68.39 Body mass index [BMI] 39.0-39.9, adult; Z71.3 Dietary counseling and surveillance
CPT/HCPCS: 97803

== ENCOUNTER 2021-08-09 02:40 | Outpatient (CLI) | payer OTHER, SELFPAY ==
[2021-08-09 10:05] LABS: Anion Gap 7.2 mmol/L (3-11); BUN 15 mg/dL (7-18); CO2 27.8 mmol/L (21.0-32.0); Calcium 9.2 mg/dL (8.5-10.1); Chloride 104 mmol/L (98-107); Estimated GFR 58.93 (mL/min/1.73m2); Glucose 110 mg/dL (74-106); Sodium 139 mmol/L (136-145)
== END 2021-08-09 02:41 | disposition home or self-care (01) ==
LOC: LBO 02:40
PROVIDERS: PCP Nurse Practitioner Family; Visit Provider Nurse Practitioner Family
DX: E66.9 Obesity, unspecified (principal)
CPT/HCPCS: 36415; 80048

== ENCOUNTER 2021-08-09 02:51 | Outpatient (CLI) | payer OTHER, SELFPAY ==
[2021-08-09 11:44] LABS: Source Nasal/Nares
[2021-08-09 14:23] LABS: COVID-19 PCR Negative (Negative)
== END 2021-08-09 02:52 | disposition home or self-care (01) ==
LOC: LBO 02:51
PROVIDERS: PCP Nurse Practitioner Family; Visit Provider Surgery
DX: Z20.822 Contact with and (suspected) exposure to COVID-19 (principal)
CPT/HCPCS: 87635

== ENCOUNTER 2021-08-11 09:56 | Day surgery (SDC) | payer OTHER, SELFPAY ==
--- NOTE | 2021-08-10 19:47 | W.COLOREPORT ---
Colonoscopy Report Date of procedure: 08/11/21 Pre-op diagnosis general: family hx of CRC/screen Post-op diagnosis procedure note: other (I/E hemorrhoids) Surgeon: Mikala Soliz Anesthesia Type: General:No Airway Complications: None Disposition: PACU Prep: Miralax/Dulcolax Retraction Time: 9 Procedure Description: After informed consent was obtained the patient was taken to the procedure room and placed in a left decubitous position. Monitors were applied and a time out was done. The patients name, date of , procedure, allergies to medications and metal in their body was reviewed. The patient was then sedated. Once sedated and comfortable a rectal exam was done. External exam large external hemorrhoidal tags. Internal exam revealed a normal sphincter tone and no palpable masses. The scope was then introduced and retrofelexed. internal hemorrhoidal tags were identified. The scope was then advanced to the cecum w/out difficulty. The TI and appendiceal orifice were identified. The prep was BBPS-3 in all segments for a total of 9. The scope was then slowly retracted over 9 minutes back into the rectum. No diverticuli were noted. SHe has a small flat 5 mm polyp at 30 cm is removed with cold biopsy forcep. A specimen is retrieved and no bleeding is noted. The scope was removed and the patient was woken up and taken back to Same day surgery in stable condition. The patient tolerated the procedure well and there were no immediate complications. Follow up: The patient should follow up in 5 years unless they develop changes in bowel habits or other new gastrointestinal complaints.
--- NOTE | 2021-08-10 19:48 | PDOC.DSDIS_ITS ---
Discharge Plan Disposition Patient Disposition: HOME Condition: Good Discharge Details Reason For Visit: colon scope Attending Provider: Mikala Soliz Primary Care Provider: Erlinda Burns Meds and New Rx's Prescriptions: Continued melatonin 10 mg capsule 10 mg PO HS PRN0RF biotin 10,000 mcg capsule 10,000 mcg PO DAILY 0RF magnesium 250 mg tablet 500 mg PO DAILY 0RF One-A-Day Women's Complete 18 mg-400 mcg- 25 mcg tablet 1 tab PO DAILY 0RF (DME) pen needle, diabetic [BD Ultra-Fine Short Pen Needle] 31 gauge x 5/16 needle See Rx Instructions .ROUTE .MEDSUPPLY Qty: 100 4RF Rx Instructions: Use with pen daily (DME) blood-glucose meter [[employer] Ultra2 Meter] Kit See Rx Instructions .ROUTE .MEDSUPPLY Qty: 1 2RF Rx Instructions: Check blood sugar twice a day (DME) blood sugar diagnostic Strip See Rx Instructions .ROUTE .MEDSUPPLY Qty: 100 4RF Rx Instructions: Check blood sugar once a day (DME) lancets [BD Ultra Fine Lancets] 33 gauge misc See Rx Instructions .ROUTE .MEDSUPPLY Qty: 100 4RF Rx Instructions: Check blood sugar once a day liraglutide (weight loss) 3 mg/0.5 mL (18 mg/3 mL) pen injector 3 mg subcut DAILY Qty: 15 4RF Rx Instructions: Inject 3mg subcutaneously once daily levonorgestrel-ethinyl estrad 0.15-0.03 mg tablet 1 tab PO DAILY Qty: 84 4RF Discontinued bisacodyl [Dulcolax (bisacodyl)] 5 mg tablet,delayed release (DR/EC) 5 mg PO QHS 0RF polyethylene glycol 3350 17 gram/dose powder 238 g PO ONCE Qty: 238 0RF Rx Instructions: take per colonoscopy instructions bisacodyl [Dulcolax (bisacodyl)] 5 mg tablet,delayed release (DR/EC) 5 mg PO ONCE Qty: 4 0RF Rx Instructions: take per colonoscopy instructions Discharge Instructions Additional Instructions: DSU Colonoscopy Post- Op Instructions Instructions for Everyone who is given Anesthesia: For your safety, please do the following for the next twenty-four (24) hours: *Do Not operate a motor vehicle (car, truck, motorcycle, etc.) *Do Not drink alcoholic beverages or use any recreational drugs for the first 24 hours or while taking pain medications. The medications in your body may have a reaction that can be dangerous. *Do Not make any important decisions or sign any important papers. Findings: A very small polyp was removed. Otherwise the colon was normal. Follow up: My office will send a letter in 2 to 3 weeks time detailing as to what type it was. Repeat colonoscopy in 5 years time. 1. No lifting over 20 pounds or strenuous activity for the first 24 hours after your procedure. After 24 hours there are no restrictions on your activity but yo u may feel fatigued for a few days. 2. After you arrive home you may have a light meal and return to your normal diet as you can tolerate it without feeling sick to your stomach. 3. You may have a bloated, gaseous feeling in your belly (abdomen) after a colonoscopy. Passing gas and belching will help. Walking or lying down on your left side with your knees flexed may relieve the discomfort. Call the office at [phone] (Office) or [phone] (Hospital) right away if you notice any of the following: a.Vomiting of blood or ?coffee ground stools?. b.Rectal bleeding 1Tbsp, blood clots or continuous bleeding. c.Severe belly (abdominal) pain. d.A hard distended belly (abdomen) and an inability to pass gas. 4. Please don?t expect to have a normal BM (bowel movement) for 2-3 days after your procedure. 5. If there are questions regarding the findings of your procedure, please contact your doctor 6. If you are unable to contact your doctor with a problem, contact the hospital at [phone]. 7. Continue all your regular medications unless directed otherwise. I understand the above instructions and have no questions. Signature of Patient or Adult Escort Name of Responsible Adult Escort Signature of Nurse Date/Time Stand Alone Forms: Anesthesia Discharge Zeenat., Shorty Kraus ([facility]) Activity:: see above Diet:: see above Discharge Orders Discharge Orders: Discharge Order (Routine); Ordered 08/10/21 Ordered By: Mikala Soliz
[2021-08-11 10:23] VITALS: BP 125/89; PULSE 81; RESP 16; TEMP 36.7; O2SAT 97
--- NOTE | 2021-08-11 10:39 | W.ANESPRE ---
General Info Date of Service Date Performed: 08/11/21 Height: 5 ft 3 in Weight: 93.5 kg Body Mass Index (BMI): 36.5 Surgical Procedure: Operation Date: 08/11/21 10:35 Proposed Procedure Side Surgeon elizabeth Soliz, DO Meds Allergies and Home Medications Allergies Allergy/AdvReac Type Severity Reaction Status Date / Time pravastatin AdvReac Intermediate Myalgias Verified 08/11/21 10:29 rosuvastatin AdvReac Intermediate Myalgias Verified 08/11/21 10:29 Home Medication Medication Instructions Recorded blood-glucose meter (OneTouch #1 ea 06/09/20 Ultra2 Meter) levonorgestrel 0.15 mg-ethinyl 1 tab PO DAILY #84 tab 09/02/20 estradiol 0.03 mg tablet blood sugar diagnostic #100 ea 12/16/20 lancets 33 gauge (BD Ultra Fine #100 ea 12/16/20 Lancets) pen needle, diabetic 31 gauge x #100 ea 06/26/21 5/16 (BD Ultra-Fine Short Pen Needle) biotin 10,000 mcg capsule 10,000 mcg PO DAILY 07/28/21 bisacodyl 5 mg tablet,delayed 5 mg PO ONCE #4 tab 07/28/21 release (Dulcolax (bisacodyl)) bisacodyl 5 mg tablet,delayed 5 mg PO QHS 07/28/21 release (Dulcolax (bisacodyl)) liraglutide (weight loss) 3 mg/0.5 3 mg (0.5 mL) SUBCUT DAILY #15 syrg 07/28/21 mL (18 mg/3 mL) subcut pen injector magnesium 250 mg tablet 500 mg PO DAILY tab 07/28/21 melatonin 10 mg capsule 10 mg PO HS PRN 07/28/21 axegkddl-poasqxf-mkug-iron 18 1 tab PO DAILY 07/28/21 mg-FA 400 mcg-vit K 25 mcg tablet (One-A-Day Women's Complete) polyethylene glycol 3350 17 238 g PO ONCE #238 g 07/28/21 gram/dose oral powder Current Visit Medications: Current Medications Generic Name Dose Route Start Last Admin Trade Name Freq PRN Reason Stop Dose Admin Hyoscyamine Sulfate 0.125 mg 08/10/21 10:20 Hyoscyamine 0.125 Mg Sl/Oral/Chew SL DIRECTED PRN Ringer's Solution 1,000 mls @ 80 mls/hr 08/11/21 06:00 IV 09/09/21 23:59 INFUSION YULY IV Miscellaneous Supplies 1 each 08/11/21 06:00 Iv Access IV 09/09/21 23:59 DIRECTED YULY Ondansetron HCl 4 mg 08/10/21 10:20 Ondansetron 4 Mg/2 Ml Vial IVP Q4H PRN PRN Nausea / Vomiting Sodium Chloride 0 ml 08/11/21 06:00 Normal Saline Flush 10 Ml Syr IV 09/09/21 23:59 PRN PRN Sodium Chloride 0 ml 08/11/21 06:00 Normal Saline 10 Ml Vial IJ 09/09/21 23:59 DIRECTED PRN Sterile Water 0 ml 08/11/21 06:00 Water,Injection,Sterile 10 Ml Vial IJ 09/09/21 23:59 DIRECTED PRN PFSH Active Problems Active Problems: Problem Status Onset Code Obesity E66.9 Hyperlipidemia E78.5 Oral contraceptive pill surveillance Z30.41 Type 2 diabetes mellitus E11.9 Medical History Medical History COVID-19 virus infection Positive COVID PCR 08/24/20 Depressive disorder Generalized anxiety disorder Left breast mass (~2003) Negative biopsy--fibrocystic changes Surgical History Surgical History History of section x2 S/P LASIK surgery of both eyes S/P left breast biopsy (02/03/04) Showed fibrocystic changes, no malignancy Tobacco Smoking/Tobacco Use Status: Current every day Tobacco Type: smokeless tobacco Smokeless tobacco user: chewing tobacco Passive smoking exposure: No Alcohol Alcohol Intake: current Alcohol intake frequency: a few times a month Alcohol type: beer and wine Substance Use Substance use: Never Substance use type: does not use Prental History History 2 Para 2 Hx # Term Pregnancies Multiple births Hx # Pregnancies Ectopic pregnancies AB induced Hx Number of Living Children 2 AB spontaneous Vital Signs and Lab Results Vital Signs Most Recent Vital Signs in EMR: Most Recent Vital Signs Temp Pulse Resp BP Pulse Ox 36.7 C 81 16 125/89 97 08/11/21 10:23 08/11/21 10:23 08/11/21 10:23 08/11/21 10:23 08/11/21 10:23 Point of Care Results Point of Care Results: POC- Test(urine) Negative 08/11/21 10:32 Finger Stick Blood Glucose 99 08/11/21 10:20 Lab Results Blood Type / Crossmatch: No Data to Display Complete Blood Count: No Data to Display Complete Metabolic Panel: Sodium Level 139 mmol/L (136-145) 08/09/21 09:00 08/09/21 Potassium Level 4.0 mmol/L (3.5-5.1) 08/09/21 09:00 08/09/21 Chloride Level 104 mmol/L (98-107) 08/09/21 09:00 08/09/21 Carbon Dioxide Level 27.8 mmol/L (21.0-32.0) 08/09/21 09:00 08/09/21 Blood Urea Nitrogen 15 mg/dL (7-18) 08/09/21 09:00 08/09/21 Creatinine 1.0 mg/dL (0.55-1.02) 08/09/21 09:00 08/09/21 Estimated GFR/1.73 m2 58.93 (mL/min/1.73m2) 08/09/21 09:00 08/09/21 Calcium Level 9.2 mg/dL (8.5-10.1) 08/09/21 09:00 08/09/21 Glucose Level 110 mg/dL (74-106) H 08/09/21 09:00 08/09/21 Liver Function Panel: No Data to Display Coagulation Panel: No Data to Display Cardiac Panel: No Data to Display Arterial Blood Gas: No Data to Display Venous Blood Gas: No Data to Display Pancreas Panel: No Data to Display Thyroid Panel: No Data to Display Infectious Disease: Coronavirus (COVID-19)(PCR) Negative (Negative) 08/09/21 08:46 08/09/21 Coronavirus 2019 Source Nasal/Nares 08/09/21 08:46 08/09/21 Blood Cultures: No Data to Display Toxicology Panel: No Data to Display Panel: No Data to Display Imaging and Studies Imaging and Studies Study information below may be from another EMR and interpreted by another provider. Please see original notes in EMR for more complete details. EKG Summary: Conclusion Sinus rhythm...normal P axis, V-rate 60- 99 I have reviewed and interpreted ECG and agree with software generated interpretation. Anesthesia Assessment and Plan Anesthesia History Personal History: No History of Anesthesia Complications Family History: No Family History of Anesthesia Complications Exercise Tolerance Exercise Tolerance: Metabolic Equivalents>4 Pertinent Negatives Pertinent Negatives: No Major Cardiovascular Symptoms or Complaints and No Major Pulmonary Symptoms or Complaints Cardiac & Pulmonary Exam Cardiac Exam: Normal S1/S2 Heart Sounds Pulmonary Exam: Clear Bilateral Breath Sounds Implantable Cardiac Device Does patient have a Pacemaker or an ICD?: No Airway Exam Known Difficult Airway: No Mallampati Class: 1 Mouth Opening: Normal (> 3cm) Thyromental Distance: Greater than 3 cm Neck Range of Motion: Full ROM Neck Circumference: Normal Teeth Condition: Normal Dentition ASA Classification ASA Score: ASA 2 Emergency Case?: No NPO Status NPO Status: NPO Clears >2 hours, Solids >8 hours Status Status: Negative HCG Anesthesia Plan Resuscitation Status: Full Code Anesthesia Technique: General Anesthesia Airway Planned: Natural Airway Monitors Used: Standard Monitors
[2021-08-11 10:43] VITALS: BMI 36.5
[2021-08-11] MEDS: Lactated Ringers 1,000 ML 80 ML IV (10:47)
--- NOTE | 2021-08-11 11:07 | BOWEL_PTH ---
PATIENT: Vivien Quijano LOC: [facility] U#:[id number] AGE/SX: 50/F ROOM: RE08/11/[address]: Mikala Soliz : 1970 BED: DIS: 08/11/2021 SPEC #: [id number] RECD: 08/11/21 13:01 STATUS: RAZ REAmadeo #: [id number] SHRUTHI: 08/11/21 11:[address]: Mikala Soliz DEPT: Surgical Specimen RECD BY: Madisyn Cisneros ENTERED: 08/11/21 13:02 SP TYPE: Bowel OTHR DR: Erlinda Burns, SOFIE Tissues: 1 - BIOPSY BOWEL Procedures: GROSS AND MICRO LEVEL 4 Comments: [id number]
[2021-08-11 11:20] VITALS: BP 114/70; PULSE 83; RESP 16; TEMP 36.6; O2SAT 97
[2021-08-11 11:49] VITALS: BP 137/102; PULSE 78; RESP 16; TEMP 36.5; O2SAT 99
[2021-08-11 12:06] VITALS: BP 130/96; PULSE 74; RESP 16; TEMP 36; O2SAT 100
--- NOTE | 2021-08-11 12:32 | W.ANESPOSTOP ---
Postoperative Evaluation Date, Time and Location Date Performed: 08/11/21 Time Performed: 12:06 Patient Location: Day Surgery Unit Vital Signs Most Recent Imported Vital Signs: Most Recent Vital Signs Temp Pulse Resp BP Pulse Ox 36 C L 74 16 130/96 H 100 08/11/21 12:06 08/11/21 12:06 08/11/21 12:06 08/11/21 12:06 08/11/21 12:06 Pain Score Most Recent Pain Score: Most Recent Pain Score Pain Level 0 08/11/21 11:49 Assessment Mental Status: Awake (Alert & Oriented to Patient Baseline) Airway and Respiratory Function: Patent airway with normal (patient baseline) respiratory exam Cardiovascular Function: Hemodynamically Stable Hydration Status: Adequately Hydrated Nausea & Vomiting: No Nausea or Vomiting Pain: Pt. Denies Any Pain Peripheral Nerve Block: Patient did not receive a nerve block
== END 2021-08-11 12:53 | disposition home or self-care (01) ==
LOC: SUR 09:57
PROVIDERS: PCP Nurse Practitioner Family; Visit Provider Surgery
PROC: 0DJD8ZZ Inspection of Lower Intestinal Tract, Via Natural or Artificial Opening Endoscopic (ICD-10-PCS; CPT 45378; principal; 2021-08-11 10:30)
DX: Z12.11 Encounter for screening for malignant neoplasm of colon (principal); Z80.0 Family history of malignant neoplasm of digestive organs; E66.9 Obesity, unspecified; E11.9 Type 2 diabetes mellitus without complications; K63.5 Polyp of colon; K63.89 Other specified diseases of intestine
CPT/HCPCS: 45380; 81025; 88305

== ENCOUNTER 2021-09-22 01:59 | Outpatient (CLI) | payer OTHER, SELFPAY ==
--- NOTE | 2021-09-22 13:38 | W.NUTRFU ---
Date of service: 09/22/21 Time of Service: 13:38 Nutrition Note NOTE: Vivien returns for weight management education. Wt: 202 lbs, has lost 5 lbs in last 8 weeks, has lost total of 40 lbs in last 14 months. BMI: 38. Meds: Trulicity. Blood sugars have been wnl. Vivien reports having a lot of GI symptoms in last month making it difficult for her to follow her meal plan and often eats less than 1000 kcal per day. Suspect Trulicity may be cause. Has not started routine exercise. Reports increased work hours and stress. Reviewed optimal meal plan for continued weight loss and recommended that she reduce/stop Trulicity for a week and determine how her GI symptoms play out. Follow up planned for 10/20/21 at 9 am. Time Spent in Nutritional Counseling and Treatment: 30
== END 2021-09-22 02:00 | disposition home or self-care (01) ==
PROVIDERS: PCP Nurse Practitioner Family; Visit Provider Dietitian, Registered

== ENCOUNTER 2021-09-29 02:42 | Outpatient (CLI) | payer OTHER, SELFPAY ==
[2021-09-29 14:41] LABS: COMMENT (LAB VIEW ONLY) 76.84 mg/dL; Microalb ug/mg Crea 4.9 ug/mg Cr
[2021-09-29 14:55] LABS: Estimated GFR 58.93 (mL/min/1.73m2)
[2021-09-29 15:11] LABS: TSH (W/Ref FT4) 1.52 uIU/mL (0.36-3.74)
== END 2021-09-29 02:43 | disposition home or self-care (01) ==
LOC: LBO 02:42
PROVIDERS: Family Medicine; PCP Nurse Practitioner Family; Visit Provider Nurse Practitioner Family
DX: Z00.00 Encounter for general adult medical examination without abnormal findings (principal); E11.9 Type 2 diabetes mellitus without complications; U07.1 COVID-19
CPT/HCPCS: 36415; 82043; 82565; 82570; 84443

== ENCOUNTER 2021-09-29 12:37 | Outpatient (CLI) | payer OTHER, SELFPAY | END 2021-09-29 12:38 | disposition home or self-care (01) | LOC: LBO 12:37 | PROVIDERS: PCP Nurse Practitioner Family; Visit Provider Family Medicine ==

== ENCOUNTER 2021-10-18 04:20 | Outpatient (CLI) | payer OTHER, SELFPAY ==
--- NOTE | 2021-10-18 09:00 | NS.NUTBLAN_ITS ---
Vivien returns for weight management education. Wt: 200 lbs, down 2 lbs in last 4 weeks, down 42 lbs in last year. Vivien reports that she stopped her Trulicity due to persistent nausea and then was dx with covid. She has not been able to exercise or follow a routine but has been able to continue to lose weight. She has restarted Trulicity at a lower dose (1.2 mg versus 1.8 mg) and feels fine and able to meet her macronutrient needs for continued weight loss. She is going on a 2 weeks RV vacation out [place] and plans to try to follow her meal plan, exercise recommendations during trip. She plans on bringing her Trulicity with her as refrigeration is available. Goal weight at next visit: 198 lbs Follow up planned 12/22/21 at 9 am.
== END 2021-10-18 04:21 | disposition home or self-care (01) ==
PROVIDERS: PCP Nurse Practitioner Family; Visit Provider Dietitian, Registered
DX: E66.8 Other obesity (principal); E11.9 Type 2 diabetes mellitus without complications; Z86.16 Personal history of COVID-19; Z71.3 Dietary counseling and surveillance
CPT/HCPCS: 97803

== ENCOUNTER → 2021-10-25 02:01 | Outpatient (CLI) | payer OTHER, SELFPAY ==
--- NOTE | 2021-10-25 08:45 | DI.MAMMO_ITS ---
Exam(s) MAMMO SCREENING EXAM: MAMMO SCREENING CLINICAL HISTORY: screening.z12.39. TECHNIQUE: Bilateral full field digital CC and MLO mammographic images were obtained with 3D tomosyn thesis and utilizing computer aided detection (CAD). COMPARISON: Prior mammograms were reviewed, the most recent being September 2020. FINDINGS: There has been no significant change in the appearance and distribution of the fibroglandular tissue. There are no new spiculated masses nor malignant appearing microcalcification groups. There is no significant architectural distortion nor skin thickening-retraction. IMPRESSION: No radiographic evidence of malignancy. BI-RADS Category 1 - Negative Breast Density - Category C - Heterogeneously dense Breast density Category C or D implies that the patient has dense breast tissue. Dense breast tissue can make it harder to find cancer on a mammogram. Dense breast tissue is also associated with an incr eased risk of breast cancer. This information about the result of the mammogram report was provided to the patient to raise their awareness. Use this report when you speak with the patient about their risks for breast cancer, which includes their family history. At that time, you may recommend additional screening tests (Ultrasoun d or MRI) as these tests may add significant information. A negative radiographic report should not delay biopsy if a dominant or clinically suspicious mass is present. Up to ten percent of cancers are not identified on mammography. A negative report may reinforce clinical impression. Adenosis and dense breasts may obscure an underlying neoplasm. False positive reports average 6 to 10%. Patient will receive a letter notifying them of these results.
== END ==
PROVIDERS: PCP Nurse Practitioner Family; Visit Provider Nurse Practitioner Family
DX: Z12.31 Encounter for screening mammogram for malignant neoplasm of breast (principal)
CPT/HCPCS: 77063; 77067

== ENCOUNTER 2021-11-14 02:53 | Outpatient (CLI) | payer OTHER, SELFPAY ==
[2021-11-14 13:14] LABS: ALT 16 U/L (14-59); Calculated LDL 163 mg/dL (<100); Cholesterol 236 mg/dL (<200); HDL Cholesterol 45 mg/dL (40-60); TSH 5.47 uIU/mL (0.36-3.74); Triglyceride 140 mg/dL (<150)
[2021-11-16 12:59] LABS: Lipoprotein (a) <7 nmol/L (<75)
== END 2021-11-14 02:54 | disposition home or self-care (01) ==
LOC: LOS 02:53
PROVIDERS: PCP Nurse Practitioner Family; Visit Provider Internal Medicine
DX: E78.00 Pure hypercholesterolemia, unspecified (principal)
CPT/HCPCS: 36415; 80061; 83695; 84443; 84460

== ENCOUNTER 2021-12-29 01:45 | Outpatient (CLI) | payer OTHER, SELFPAY ==
--- NOTE | 2021-12-29 09:00 | NS.NUTBLAN_ITS ---
Vivien returns for weight management education. Wt: 198 lbs. down 2 lbs in last 8 weeks, down 44 lbs in in last year. MEDS: 1.2 mg trucility q week Diet Recall: premier protein shake, meat and vegetables at lunch and dinner Exercise: averaging [id number] steps daily Vivien is tolerating lower Trulicity dose and continues to do well on tracking her meals and steps. Reviewed meal plans and made adjustments for increased variety. Encouraged daily walk of 1 mile to help raise metabolism and fasciliate wt loss. Vivien reports work schedule very demanding, limiting time for exercise. Follow up scheduled for 02/22/22 at 9 am. Goal Wt: 193 lbs in next 8 weeks.
== END 2021-12-29 01:46 | disposition home or self-care (01) ==
LOC: DS 01:46
PROVIDERS: PCP Nurse Practitioner Family; Visit Provider Dietitian, Registered
DX: E66.8 Other obesity (principal); Z71.3 Dietary counseling and surveillance
CPT/HCPCS: 97803

== ENCOUNTER 2022-07-20 01:23 | Outpatient (CLI) | payer OTHER, SELFPAY ==
[2022-07-20 12:43] LABS: Anion Gap 8.5 mmol/L (3-11); BUN 15 mg/dL (7-18); CO2 27.5 mmol/L (21.0-32.0); Calcium 9.2 mg/dL (8.5-10.1); Calculated LDL 166 mg/dL (<100); Chloride 104 mmol/L (98-107); Cholesterol 237 mg/dL (<200); Estimated GFR 68.63 (mL/min/1.73m2); Glucose 106 mg/dL (74-106); HDL Cholesterol 52 mg/dL (40-60); Potassium 3.8 mmol/L (3.5-5.1); Sodium 140 mmol/L (136-145); TSH (W/Ref FT4) 3.34 uIU/mL (0.36-3.74); Triglyceride 98 mg/dL (<150)
== END 2022-07-20 01:24 | disposition home or self-care (01) ==
LOC: LOS 01:23
PROVIDERS: PCP Nurse Practitioner Family; Visit Provider Nurse Practitioner Family
DX: E78.5 Hyperlipidemia, unspecified (principal); E11.9 Type 2 diabetes mellitus without complications; E66.8 Other obesity
CPT/HCPCS: 36415; 80048; 80061; 84443

== ENCOUNTER 2022-10-29 02:32 | Outpatient (CLI) | payer OTHER, SELFPAY ==
--- NOTE | 2022-10-29 07:15 | DI.MAMMO_ITS ---
Exam(s) MAMMO SCREENING EXAM: MAMMO SCREENING CLINICAL HISTORY: screening, z12.39. TECHNIQUE: Bilateral full field digital CC and MLO mammographic images were obtained with 3D tomosyn thesis and utilizing computer aided detection (CAD). COMPARISON: Prior mammograms were reviewed. FINDINGS: There has been no significant change in the appearance and distribution of the fibroglandular tissue. There are no CAD designations There are no new spiculated masses nor malignant appearing microcalcification groups. There is no significant architectural distortion nor skin thickening-retraction. IMPRESSION: No radiographic evidence of malignancy. BI-RADS Category 1 - Negative Breast Density - Category B - Scattered areas of fibroglandular density Breast density Category C or D implies that the patient has dense breast tissue. Dense breast tissue can make it harder to find cancer on a mammogram. Dense breast tissue is also associated with an incr eased risk of breast cancer. This information about the result of the mammogram report was provided to the patient to raise their awareness. Use this report when you speak with the patient about their risks for breast cancer, which includes their family history. At that time, you may recommend additional screening tests (Ultrasoun d or MRI) as these tests may add significant information. A negative radiographic report should not delay biopsy if a dominant or clinically suspicious mass is present. Up to ten percent of cancers are not identified on mammography. A negative report may reinforce clinical impression. Adenosis and dense breasts may obscure an underlying neoplasm. False positive reports average 6 to 10%. Patient will receive a letter notifying them of these results.
== END 2022-10-29 02:52 ==
LOC: DI 02:33
PROVIDERS: PCP Nurse Practitioner Family; Visit Provider Nurse Practitioner Family
DX: Z12.31 Encounter for screening mammogram for malignant neoplasm of breast (principal)
CPT/HCPCS: 77063; 77067

== ENCOUNTER 2022-10-29 04:27 | Outpatient (CLI) | payer OTHER, SELFPAY ==
[2022-10-29 09:57] LABS: Hemoglobin A1C 6.4 % (<5.7)
== END 2022-10-29 04:28 | disposition home or self-care (01) ==
LOC: LBO 04:27
PROVIDERS: PCP Nurse Practitioner Family; Visit Provider Nurse Practitioner Family
DX: E11.9 Type 2 diabetes mellitus without complications (principal)
CPT/HCPCS: 36415; 83036

== ENCOUNTER 2023-01-28 08:32 | Outpatient (REF) | payer OTHER, SELFPAY ==
[2023-01-28 16:02] LABS: Microalb ug/mg Crea 3.5 ug/mg Cr
== END 2023-01-28 08:33 | disposition home or self-care (01) ==
LOC: LBN 08:32
PROVIDERS: PCP Nurse Practitioner Family; Visit Provider Nurse Practitioner Family
DX: E11.9 Type 2 diabetes mellitus without complications (principal)
CPT/HCPCS: 82043; 82570

== ENCOUNTER 2023-02-05 03:37 | Outpatient (CLI) | payer OTHER, SELFPAY ==
[2023-02-05 16:35] LABS: Abs Immature Grans 0.01 10^3/uL (0.0-0.06); Absolute Basophil Count 0.02 10^3/uL (0.0-0.2); Absolute Eosinophil Count 0.06 10^3/uL (0.0-0.7); Absolute Lymphocyte Count 2.69 10^3/uL (1.2-3.4); Absolute Monocyte Count 0.38 10^3/uL (0.1-0.8); Absolute Neutrophil Count 2.28 10^3/uL (1.2-6.7); Basophils % 0.4; Eosinophils % 1.1; HCT 40.2 % (36.0-46.0); HGB 13.6 g/dL (11.2-15.7); Immature Grans % 0.2; Lymphocytes % 49.4; MCH 30.6 pg (27.0-33.0); MCHC 33.8 % (32.0-36.0); MCV 91 fL (80-95); MPV 10.3 fL (8.0-11.0); Neutrophils % 41.9; Platelet Count 236 10^3/uL (130-400); RBC 4.44 10^6/uL (3.93-5.22); RDW 12.3 % (11.7-14.6); RDW-SD 40.8 fL; WBC 5.44 10^3/uL (4.4-10.8)
[2023-02-05 17:33] LABS: ALT 27 U/L (14-59); AST 12 U/L (15-37); Albumin 3.2 g/dL (3.4-5.0); Alkaline Phosphatase 74 U/L (46-116); Anion Gap 8.5 mmol/L (3-11); BUN 15 mg/dL (7-18); Bilirubin, Total 0.2 mg/dL (0.2-1.0); CO2 25.5 mmol/L (21.0-32.0); CREATININE 0.8 mg/dL (0.55-1.02); Calcium 9.2 mg/dL (8.5-10.1); Chloride 105 mmol/L (98-107); Estimated GFR 89.15 (mL/min/1.73m2); Glucose 136 mg/dL (74-106); Lipase 70 U/L (16-77); Potassium 3.6 mmol/L (3.5-5.1); Sodium 139 mmol/L (136-145); Total Protein 7.3 g/dL (6.4-8.2)
== END 2023-02-05 03:38 | disposition home or self-care (01) ==
LOC: LBO 03:37
PROVIDERS: PCP Nurse Practitioner Family; Visit Provider Nurse Practitioner Family
DX: R10.13 Epigastric pain (principal); E11.9 Type 2 diabetes mellitus without complications; E78.5 Hyperlipidemia, unspecified
CPT/HCPCS: 36415; 80053; 83690; 85025

== ENCOUNTER 2023-09-23 12:32 | Outpatient (REF) | payer OTHER, SELFPAY ==
--- NOTE | 2023-09-23 11:00 | PAPFT_PTH ---
PATIENT: Vivien Quijano LOC: [facility] U#:[id number] AGE/SX: 52/F ROOM: RE09/23/[address]: SOFIE Chairez : 1970 BED: DIS: 09/23/2023 SPEC #: [id number] RECD: 09/24/23 12:53 STATUS: RAZ REQ #: [id number] SHRUTHI: 09/23/23 11:[address]: Erlinda Burns DEPT: [facility] Cytology RECD BY: Madisyn Cisneros Tissues: 1 - CX/ENDOCX FOR PAP SMEARS Procedures: PAP THIN PREP/UVM Screening HPV DNA PROBE Comments: [id number]
== END 2023-09-23 12:33 | disposition home or self-care (01) ==
LOC: LBN 12:32
PROVIDERS: PCP Nurse Practitioner Family; Visit Provider Nurse Practitioner Family
DX: Z12.4 Encounter for screening for malignant neoplasm of cervix (principal); Z00.00 Encounter for general adult medical examination without abnormal findings; E66.01 Morbid (severe) obesity due to excess calories; Z68.41 Body mass index [BMI] 40.0-44.9, adult; E11.9 Type 2 diabetes mellitus without complications; Z30.41 Encounter for surveillance of contraceptive pills; M25.561 Pain in right knee; M25.562 Pain in left knee; K21.9 Gastro-esophageal reflux disease without esophagitis; Z12.31 Encounter for screening mammogram for malignant neoplasm of breast
CPT/HCPCS: 88142; 87624

== ENCOUNTER 2023-09-27 01:35 | Outpatient (CLI) | payer OTHER, SELFPAY ==
[2023-09-27 13:00] LABS: Anion Gap 6.7 mmol/L (3-11); BUN 14 mg/dL (7-18); CO2 28.3 mmol/L (21.0-32.0); Calcium 9.1 mg/dL (8.5-10.1); Calculated LDL 169 mg/dL (<100); Chloride 106 mmol/L (98-107); Cholesterol 239 mg/dL (<200); Estimated GFR 68.21 (mL/min/1.73m2); Glucose 123 mg/dL (74-106); HDL Cholesterol 50 mg/dL (40-60); Potassium 4.1 mmol/L (3.5-5.1); Sodium 141 mmol/L (136-145); Triglyceride 103 mg/dL (<150)
[2023-09-27 22:10] LABS: Hepatitis C Ab w Rflx HCV PCR Negative (Negative)
== END 2023-09-27 01:36 | disposition home or self-care (01) ==
LOC: LOS 01:35
PROVIDERS: PCP Nurse Practitioner Family; Visit Provider Nurse Practitioner Family
DX: Z00.00 Encounter for general adult medical examination without abnormal findings (principal)
CPT/HCPCS: 36415; 80048; 80061; 86803

== ENCOUNTER → 2023-10-31 00:23 | Outpatient (CLI) | payer OTHER, SELFPAY ==
--- NOTE | 2023-10-31 08:15 | DI.MAMMO_ITS ---
Exam(s) MAMMO SCREENING EXAM: MAMMO SCREENING CLINICAL HISTORY: screening Z12.39 TECHNIQUE: Bilateral full field digital CC and MLO mammographic images were obtained with 3D tomosyn thesis and utilizing computer aided detection (CAD). COMPARISON: Available for comparison. FINDINGS: Masses/Architectural Distortion: None seen. Microcalcifications: No suspicious pleomorphic-type are seen. Skin Thickening/Nipple Retraction: None. IMPRESSION: 1. No significant interval change with no specific features of malignancy noted. 2. Unless there is more urgent need, screening mammography is recommended, as per [employer] guidelines. BI-RADS Category 1 - Negative Breast Density - Category B - Scattered areas of fibroglandular density Breast density category C or D implies that the patient has dense breast tissue. Dense breast tissue is very common and is not abnormal but dense breast tissue can make it harder to find cancer on a ma mmogram. Also, dense breast tissue may increase their breast cancer risk. This information about the result of the mammogram report was provided to the patient to raise their awareness. Use this report when you speak with the patient about their risks for breast cancer, which includes their family hist ory. At that time, you may recommend for more screening tests (Ultrasound or MRI) as they might be us eful based on their risk. A negative radiographic report should not delay biopsy if a dominant or clinically suspicious mass is present. Up to ten percent of cancers are not identified on mammography. A negative report may reinforce clinical impression. Adenosis and dense breasts may obscure an underlying neoplasm. False positive reports average 6 to 10%. Patient will receive a letter notifying them of these results.
== END ==
PROVIDERS: PCP Nurse Practitioner Family; Visit Provider Nurse Practitioner Family
DX: Z12.31 Encounter for screening mammogram for malignant neoplasm of breast (principal)
CPT/HCPCS: 77063; 77067

== ENCOUNTER 2024-04-14 02:10 | Outpatient (CLI) | payer OTHER, SELFPAY ==
[2024-04-14 08:56] LABS: Hemoglobin A1C 5.6 % (<5.7)
== END 2024-04-14 02:11 | disposition home or self-care (01) ==
PROVIDERS: PCP Nurse Practitioner Family; Visit Provider Nurse Practitioner Family
DX: E11.9 Type 2 diabetes mellitus without complications (principal)
CPT/HCPCS: 36415; 83036

== ENCOUNTER 2024-08-17 01:56 | Outpatient (CLI) | payer OTHER, SELFPAY | END 2024-08-17 01:57 | disposition home or self-care (01) | PROVIDERS: PCP Nurse Practitioner Family; Visit Provider Nurse Practitioner Family | DX: E11.9 Type 2 diabetes mellitus without complications (principal) | CPT/HCPCS: 36415; 83036 ==

== ENCOUNTER 2024-11-13 00:29 | Outpatient (CLI) | payer OTHER, SELFPAY ==
--- NOTE | 2024-11-13 14:12 | DI.MAMMO_ITS ---
Exam(s) MAMMO SCREENING EXAM: MAMMO SCREENING CLINICAL HISTORY: screening, Z12.39 TECHNIQUE: Bilateral full field digital CC and MLO mammographic images were obtained with 3D tomosynthesis and utilizing computer aided detection (CAD). COMPARISON: Comparison is made with prior examinations. FINDINGS: Masses/Architectural Distortion: No suspicious masses or areas of architectural distortion are present. Microcalcifications: No suspicious pleomorphic-type are seen. Skin Thickening/Nipple Retraction: None. IMPRESSION: 1. No significant interval change with no specific features of malignancy noted. 2. Unless there is more urgent need, screening mammography is recommended, as per [employer] guidelines. BI-RADS Category 1 - Negative Breast Density - Category B - There are scattered areas of fibroglandular density. Breast density Category C or D implies that the patient has dense breast tissue. Dense breast tissue can make it harder to find cancer on a mammogram. Dense breast tissue is also associated with an increased risk of breast cancer. This information about the result of the mammogram report was provided to the patient to raise their awareness. Use this report when you speak with the patient about their risks for breast cancer, which includes their family history. At that time, you may recommend additional screening tests (Ultrasound or MRI) as these tests may add significant information. A negative radiographic report should not delay biopsy if a dominant or clinically suspicious mass is present. Up to ten percent of cancers are not identified on mammography. A negative report may reinforce clinical impression. Adenosis and dense breasts may obscure an underlying neoplasm. False positive reports average 6 to 10%. Patient will receive a letter notifying them of these results.
== END 2024-11-13 00:49 ==
LOC: DI 00:29
PROVIDERS: PCP Nurse Practitioner Family; Visit Provider Nurse Practitioner Family
DX: Z12.31 Encounter for screening mammogram for malignant neoplasm of breast (principal); E78.5 Hyperlipidemia, unspecified; R92.323 Mammographic fibroglandular density, bilateral breasts
CPT/HCPCS: 77063; 77067

== ENCOUNTER 2024-11-23 03:34 | Outpatient (CLI) | payer OTHER, SELFPAY ==
[2024-11-23 07:33] LABS: ALT 35 U/L (14-59); AST 18 U/L (15-37); Albumin 3.5 g/dL (3.4-5.0); Alkaline Phosphatase 112 U/L (46-116); Anion Gap 8.0 mmol/L (3-11); BUN 15 mg/dL (7-18); Bilirubin, Total 0.4 mg/dL (0.2-1.0); CO2 29.0 mmol/L (21.0-32.0); Calcium 9.4 mg/dL (8.5-10.1); Calculated LDL 134 mg/dL (<100); Chloride 104 mmol/L (98-107); Cholesterol 221 mg/dL (<200); Estimated GFR 76.44 (mL/min/1.73m2); Glucose 124 mg/dL (74-106); HDL Cholesterol 65 mg/dL (>or=50); Potassium 3.8 mmol/L (3.5-5.1); Sodium 141 mmol/L (136-145); Total Protein 7.1 g/dL (6.4-8.2); Triglyceride 113 mg/dL (<150)
== END 2024-11-23 03:35 | disposition home or self-care (01) ==
LOC: LBO 03:35
PROVIDERS: PCP Nurse Practitioner Family; Visit Provider Nurse Practitioner Family
DX: E78.5 Hyperlipidemia, unspecified (principal)
CPT/HCPCS: 36415; 80053; 80061